=== PATIENT | male | born 1980 | race Two or more races ===

== ENCOUNTER 2023-09-29 14:37 | Inpatient (IN) | payer OTHER ==
[~2023-09-29] VITALS: Ht 175.3 cm; Wt 70.5 kg
[2023-09-29] MEDS ORDERED: METF-1211 PO (15:12)
[2023-09-29] MEDS ORDERED: INSLAN SQ (15:12)
[2023-09-29 15:24] LABS: BASOPHILS % (AUTO) 0.7 % (0.0-2.0); EOSINOPHILS % (AUTO) 1.8 % (1.0-6.0); HEMATOCRIT 37.7 % (41-53); HEMOGLOBIN 13.2 g/dL (13.5-17.5); LYMPHOCYTES # (AUTO) 1.5 K/uL (1.0-4.8); LYMPHOCYTES % (AUTO) 16.7 % (22.0-44.0); MEAN CORPUSCULAR HEMOGLOBIN 29.4 pg (26.0-34.0); MEAN CORPUSCULAR HGB CONC 35.1 G/dL (31.0-37.0); MEAN CORPUSCULAR VOLUME 84 fL (80-100); MONOCYTES # (AUTO) 0.6 K/uL (0.1-1.0); MONOCYTES % (AUTO) 6.5 % (2.0-9.0); NEUTROPHILS # (AUTO) 6.6 K/uL (1.8-7.7); NEUTROPHILS % (AUTO) 74.3 % (40.0-70.0); PLATELET COUNT (AUTO) 245 K/uL (150-450); RED CELL DISTRIBUTION WIDTH 13.9 % (11.5-14.5); WHITE BLOOD COUNT (AUTO) 8.9 K/uL (4.5-11.0)
[2023-09-29 15:59] LABS: ALANINE AMINOTRANSFERASE 15 U/L (12-78); ALBUMIN 3.2 g/dL (3.4-5.0); ALKALINE PHOSPHATASE 114 U/L (46-116); ANION GAP 11 mmol/L (8-16); ASPARTATE AMINOTRANSFERASE 12 U/L (15-37); BILIRUBIN,TOTAL 0.4 mg/dL (0.1-1.0); CALCIUM, TOTAL 9.2 mg/dL (8.8-10.5); CARBON DIOXIDE 27 mmol/L (22-29); CHLORIDE 104 mmol/L (98-107); CREATININE 1.04 mg/dL (0.60-1.30); GLOMERULAR FILTR. RATE CALC > 60 mL/min (>60); POTASSIUM 5.3 mmol/L (3.5-5.1); SODIUM SERUM 141 mmol/L (136-145); TOTAL PROTEIN, SERUM 6.6 g/dL (6.4-8.2); UREA NITROGEN, BLOOD 17 mg/dL (7-18)
[2023-09-29 16:00] LABS: GLUCOSE,RANDOM 433 mg/dL (70-110)
[2023-09-29] MEDS: SODIUM CHLORIDE 0.9% 1,000 ML IV ONE (16:26)
[2023-09-29 16:34] LABS: COVID AG,FIA SOURCE NASAL SWAB
[2023-09-29] MEDS: INSULIN REGULAR, HUMAN 100 UNITS/ML IVP ONE (16:44)
[2023-09-29 16:54] LABS: SARS-COV2 (COVID) ANTIGEN,FIA Negative (Negative)
[2023-09-29 18:12] VITALS: BP 138/75; PULSE 86; RESP 18; TEMP 97.7
[2023-09-29 18:46] LABS: MTB PCR w/Rif. Resistance-SPUT NOT DETECTED (Not Detectd)
[2023-09-29 19:28] VITALS: BP 140/92; PULSE 92; RESP 18; TEMP 98.9
[2023-09-29 21:45] VITALS: BP 150/87; PULSE 81; RESP 16; TEMP 98.7
[2023-09-29] MEDS ORDERED: ONDANSETRON HCL 4 MG/2 ML VIAL IVP PRN (21:45)
[2023-09-29] MEDS ORDERED: 0.9% SODIUM CHLORIDE 10 ML SYRINGE IVP PRN (21:45)
[2023-09-29] MEDS: ACETAMINOPHEN 325 MG TABLET PO PRN (22:39)
[2023-09-30] VITALS (7 sets, daily range): BP systolic 108–150; BP diastolic 78–89; PULSE 83–93; RESP 18; TEMP 97.8–98.6; O2SAT 100
[2023-09-30 01:46] LABS: GLUCOMETER DEV NAME(LOC) 5N.2C; GLUCOSE,POINT OF CARE 346 MG/DL (70-110)
[2023-09-30] MEDS ORDERED: DEXTROSE 50%-WATER 25 GM/50 ML SYRINGE IVP PRN (03:15)
[2023-09-30] MEDS: INSULIN LISPRO 100 UNITS/ML SQ PRN ×2 (06:15→20:43)
[2023-09-30 06:46] LABS: GLUCOMETER DEV NAME(LOC) 5N.2C; GLUCOSE,POINT OF CARE 297 MG/DL (70-110)
[2023-09-30 07:41] LABS: ANION GAP 6 mmol/L (8-16); CALCIUM, TOTAL 8.8 mg/dL (8.8-10.5); CARBON DIOXIDE 29 mmol/L (22-29); CHLORIDE 102 mmol/L (98-107); CREATININE 0.83 mg/dL (0.60-1.30); GLOMERULAR FILTR. RATE CALC > 60 mL/min (>60); GLUCOSE,RANDOM 224 mg/dL (70-110); POTASSIUM 3.7 mmol/L (3.5-5.1); SODIUM SERUM 137 mmol/L (136-145); UREA NITROGEN, BLOOD 18 mg/dL (7-18)
[2023-09-30 08:07] LABS: HIV 1-2 SCREEN 4TH GEN W/RFLX Non Reactive (Non Reactive)
[2023-09-30] MEDS ORDERED: GLUCAGON,HUMAN RECOMBINANT 1 MG VIAL IM PRN (16:45)
[2023-09-30] MEDS ORDERED: IPRATROPIUM BROMIDE 0.5 MG/2.5 ML NEB SOLUTION NEB PRN (16:45)
[2023-09-30] MEDS ORDERED: BISACODYL 10 MG RECTAL RECTAL SUPPOSITORY PR PRN (16:45)
[2023-09-30] MEDS ORDERED: ONDANSETRON HCL 4 MG/2 ML VIAL IVP PRN (16:45)
[2023-09-30] MEDS ORDERED: ALBUTEROL SULFATE 2.5 MG/0.5 ML NEB SOLUTION NEB PRN (16:45)
[2023-09-30] MEDS ORDERED: MAGNESIUM HYDROXIDE SUSPENSION 30 ML UDCUP PO PRN (16:45)
[2023-09-30] MEDS: LISINOPRIL 20 MG TABLET PO ONE (16:57)
[2023-09-30] MEDS: ACETAMINOPHEN 325 MG TABLET PO PRN (17:15)
[2023-09-30 17:38] LABS: MTB PCR w/Rif. Resistance-SPUT NOT DETECTED (Not Detectd)
[2023-09-30] MEDS: INSULIN GLARGINE,HUM.REC.ANLOG 100 UNITS/ML SQ SCH (20:42)
[2023-09-30 21:57] LABS: GLUCOMETER DEV NAME(LOC) 5N.2C; GLUCOSE,POINT OF CARE 247 MG/DL (70-110)
[2023-09-30 21:57] LABS: GLUCOMETER DEV NAME(LOC) 5N.2C; GLUCOSE,POINT OF CARE 250 MG/DL (70-110)
[2023-09-30 21:57] LABS: GLUCOMETER DEV NAME(LOC) 5N.2C; GLUCOSE,POINT OF CARE 255 MG/DL (70-110)
[2023-09-30] MEDS: HEPARIN SODIUM,PORCINE 5,000 UNITS/ML VIAL SQ SCH (23:46)
[2023-10-01 01:46] LABS: GLUCOMETER DEV NAME(LOC) 5N.2C; GLUCOSE,POINT OF CARE 157 MG/DL (70-110)
[2023-10-01 02:05] VITALS: BP 107/72; PULSE 78; RESP 18; TEMP 98
[2023-10-01 06:56] VITALS: BP 110/74; PULSE 78; RESP 18; TEMP 98.5
[2023-10-01 08:26] VITALS: BP 107/71; PULSE 85; RESP 18; TEMP 98.9
[2023-10-01] MEDS: LISINOPRIL 20 MG TABLET PO SCH (09:06)
[2023-10-01] MEDS: PANTOPRAZOLE SODIUM 40 MG DR TABLET PO SCH (09:06)
[2023-10-01 11:11] VITALS: BP 136/71; PULSE 87; RESP 18; TEMP 97.8
[2023-10-01 12:56] LABS: GLUCOMETER DEV NAME(LOC) 5N.2C; GLUCOSE,POINT OF CARE 314 MG/DL (70-110)
[2023-10-01 12:56] LABS: GLUCOMETER DEV NAME(LOC) 5N.2C; GLUCOSE,POINT OF CARE 308 MG/DL (70-110)
[2023-10-01 15:22] VITALS: BP 100/63; PULSE 86; RESP 19; TEMP 98.4
[2023-10-01 19:00] VITALS: BP 139/93; PULSE 83; RESP 20; TEMP 97.8
[2023-10-01 21:31] LABS: GLUCOMETER DEV NAME(LOC) 5S.1B; GLUCOSE,POINT OF CARE 276 MG/DL (70-110)
[2023-10-02 00:42] LABS: GLUCOMETER DEV NAME(LOC) 6N.2B; GLUCOSE,POINT OF CARE 241 MG/DL (70-110)
[2023-10-02 05:45] VITALS: BP 101/57; PULSE 78; RESP 20; TEMP 98.3
[2023-10-02 06:05] VITALS: BP 126/79; PULSE 59; RESP 18; TEMP 97.8
[2023-10-02 06:47] VITALS: O2SAT 98
[2023-10-02 07:41] LABS: GLUCOMETER DEV NAME(LOC) 6S.2; GLUCOSE,POINT OF CARE 233 MG/DL (70-110)
[2023-10-02 08:06] LABS: QUANTIFERON+,Mitogen Value >10.00 IU/mL; QUANTIFERON+,TB1 Antigen Value >10.00 IU/mL; QUANTIFERON+,TB2 Antigen Value >10.00 IU/mL; QUANTIFERON, TB GOLD PLUS Positive (Negative)
[2023-10-02 08:14] VITALS: BP 113/65; PULSE 87; RESP 18; TEMP 98.3
[2023-10-02 13:51] LABS: GLUCOMETER DEV NAME(LOC) 4E.2; GLUCOSE,POINT OF CARE 412 MG/DL (70-110)
[2023-10-02 13:56] LABS: GLUCOMETER DEV NAME(LOC) 6S.2; GLUCOSE,POINT OF CARE 148 MG/DL (70-110)
[2023-10-02 15:58] VITALS: BP 115/72; PULSE 86; RESP 18; TEMP 98.4
[2023-10-02 16:31] LABS: ALANINE AMINOTRANSFERASE 14 U/L (12-78); ALBUMIN 3.1 g/dL (3.4-5.0); ALKALINE PHOSPHATASE 102 U/L (46-116); AMYLASE 69 U/L (25-115); ANION GAP 6 mmol/L (8-16); ASPARTATE AMINOTRANSFERASE 12 U/L (15-37); BILIRUBIN,TOTAL 0.3 mg/dL (0.1-1.0); CALCIUM, TOTAL 9.2 mg/dL (8.8-10.5); CARBON DIOXIDE 29 mmol/L (22-29); CHLORIDE 100 mmol/L (98-107); CREATININE 0.91 mg/dL (0.60-1.30); GLOMERULAR FILTR. RATE CALC > 60 mL/min (>60); GLUCOSE,RANDOM 372 mg/dL (70-110); LIPASE 81 U/L (16-77); POTASSIUM 4.6 mmol/L (3.5-5.1); SODIUM SERUM 135 mmol/L (136-145); TOTAL PROTEIN, SERUM 6.2 g/dL (6.4-8.2); UREA NITROGEN, BLOOD 19 mg/dL (7-18)
[2023-10-02 17:56] LABS: GLUCOMETER DEV NAME(LOC) 6N.2B; GLUCOSE,POINT OF CARE 287 MG/DL (70-110)
[2023-10-02 19:24] VITALS: BP 123/75; PULSE 91; RESP 18; TEMP 97.9
[2023-10-03 01:56] LABS: GLUCOMETER DEV NAME(LOC) 6N.2B; GLUCOSE,POINT OF CARE 303 MG/DL (70-110)
[2023-10-03 04:41] VITALS: BP 111/66; PULSE 73; RESP 19; TEMP 98.1
[2023-10-03 04:51] VITALS: O2SAT 98
[2023-10-03 07:46] LABS: GLUCOMETER DEV NAME(LOC) 6N.2B; GLUCOSE,POINT OF CARE 146 MG/DL (70-110)
[2023-10-03 08:16] VITALS: BP 102/63; PULSE 78; RESP 18; TEMP 98.6
[2023-10-03 13:02] LABS: GLUCOMETER DEV NAME(LOC) 6N.2B; GLUCOSE,POINT OF CARE 290 MG/DL (70-110)
[2023-10-03] MEDS ORDERED: IOHEXOL 300 MG/ML 100 ML VIAL ONE (17:51)
[2023-10-03] MEDS ORDERED: SODIUM CHLORIDE 0.9% 100 ML ONE (17:51)
[2023-10-03 20:10] VITALS: BP 116/68; PULSE 84; RESP 20; TEMP 98.6
[2023-10-03 20:46] LABS: GLUCOMETER DEV NAME(LOC) 6N.2B; GLUCOSE,POINT OF CARE 311 MG/DL (70-110)
[2023-10-03] MEDS: ZOLPIDEM TARTRATE 5 MG TABLET PO PRN (22:17)
[2023-10-04 00:41] LABS: GLUCOMETER DEV NAME(LOC) 6S.2; GLUCOSE,POINT OF CARE 325 MG/DL (70-110)
[2023-10-04 04:21] VITALS: BP 121/65; PULSE 89; RESP 20; TEMP 98.2
[2023-10-04 04:50] VITALS: O2SAT 99
[2023-10-04 07:45] VITALS: BP 116/77; PULSE 95; RESP 20; TEMP 98.1
[2023-10-04 07:51] LABS: GLUCOMETER DEV NAME(LOC) 6N.2B; GLUCOSE,POINT OF CARE 169 MG/DL (70-110)
[2023-10-04 11:51] LABS: GLUCOMETER DEV NAME(LOC) 6S.2; GLUCOSE,POINT OF CARE 242 MG/DL (70-110)
[2023-10-04 12:36] LABS: GLUCOMETER DEV NAME(LOC) 4E.2; GLUCOSE,POINT OF CARE 207 MG/DL (70-110)
[2023-10-04 20:33] VITALS: BP 124/76; PULSE 72; RESP 20; TEMP 98
[2023-10-04] MEDS: INSULIN GLARGINE,HUM.REC.ANLOG 100 UNITS/ML SQ SCH (21:22)
[2023-10-05 02:36] LABS: GLUCOMETER DEV NAME(LOC) 4E.2; GLUCOSE,POINT OF CARE 257 MG/DL (70-110)
[2023-10-05 02:40] LABS: GLUCOMETER DEV NAME(LOC) 6S.2; GLUCOSE,POINT OF CARE 216 MG/DL (70-110)
[2023-10-05 04:40] VITALS: BP 110/66; PULSE 63; RESP 18; TEMP 98
[2023-10-05 08:16] LABS: GLUCOMETER DEV NAME(LOC) 4E.2; GLUCOSE,POINT OF CARE 158 MG/DL (70-110)
[2023-10-05 08:20] VITALS: BP 108/67; PULSE 78; RESP 18; TEMP 98.6
[2023-10-05 18:01] LABS: GLUCOMETER DEV NAME(LOC) 6S.2; GLUCOSE,POINT OF CARE 266 MG/DL (70-110)
[2023-10-05 19:06] LABS: GLUCOMETER DEV NAME(LOC) 4E.2; GLUCOSE,POINT OF CARE 142 MG/DL (70-110)
[2023-10-05 19:52] VITALS: BP 99/58; PULSE 79; RESP 18; TEMP 98.1
[2023-10-05 23:05] LABS: QUANTIFERON+, Nil Value 0.04 IU/mL; QUANTIFERON+,Mitogen Value 4.15 IU/mL; QUANTIFERON+,TB1 Antigen Value >10.00 IU/mL; QUANTIFERON+,TB2 Antigen Value >10.00 IU/mL; QUANTIFERON, TB GOLD PLUS Positive (Negative)
[2023-10-05 23:26] LABS: GLUCOMETER DEV NAME(LOC) 6S.2; GLUCOSE,POINT OF CARE 190 MG/DL (70-110)
[2023-10-06 05:06] VITALS: BP 122/71; PULSE 72; RESP 18; TEMP 97.9
[2023-10-06 07:12] LABS: GLUCOMETER DEV NAME(LOC) 6S.2; GLUCOSE,POINT OF CARE 120 MG/DL (70-110)
[2023-10-06 11:39] VITALS: BP 122/77; PULSE 81; RESP 20; TEMP 97.5
[2023-10-06 11:41] LABS: GLUCOMETER DEV NAME(LOC) 6S.2; GLUCOSE,POINT OF CARE 215 MG/DL (70-110)
[2023-10-06 17:36] LABS: GLUCOMETER DEV NAME(LOC) 6N.2B; GLUCOSE,POINT OF CARE 221 MG/DL (70-110)
[2023-10-06] MEDS: MetFORMIN HCL 500 MG TABLET PO SCH (17:53)
[2023-10-06 20:25] VITALS: BP 131/68; PULSE 61; RESP 18; TEMP 98
[2023-10-06] MEDS: BENZONATATE 100 MG CAPSULE PO PRN (23:50)
[2023-10-07 04:37] VITALS: BP 127/63; PULSE 79; RESP 18; TEMP 98
[2023-10-07 06:11] LABS: GLUCOMETER DEV NAME(LOC) 4E.2; GLUCOSE,POINT OF CARE 202 MG/DL (70-110)
[2023-10-07 06:12] LABS: GLUCOMETER DEV NAME(LOC) 4E.2; GLUCOSE,POINT OF CARE 143 MG/DL (70-110)
[2023-10-07 09:05] VITALS: BP 130/73; PULSE 86; RESP 18; TEMP 99.3
[2023-10-07 09:13] VITALS: O2SAT 100
[2023-10-07 11:52] LABS: BASOPHILS % (AUTO) 0.9 % (0.0-2.0); EOSINOPHILS % (AUTO) 2.5 % (1.0-6.0); HEMATOCRIT 41.5 % (41-53); HEMOGLOBIN 14.2 g/dL (13.5-17.5); LYMPHOCYTES # (AUTO) 1.6 K/uL (1.0-4.8); LYMPHOCYTES % (AUTO) 25.7 % (22.0-44.0); MEAN CORPUSCULAR HEMOGLOBIN 28.5 pg (26.0-34.0); MEAN CORPUSCULAR HGB CONC 34.2 G/dL (31.0-37.0); MEAN CORPUSCULAR VOLUME 83 fL (80-100); MONOCYTES # (AUTO) 0.5 K/uL (0.1-1.0); MONOCYTES % (AUTO) 7.6 % (2.0-9.0); NEUTROPHILS # (AUTO) 3.8 K/uL (1.8-7.7); NEUTROPHILS % (AUTO) 63.3 % (40.0-70.0); PLATELET COUNT (AUTO) 229 K/uL (150-450); RED BLOOD CELL COUNT(AUTO) 4.99 MIL/uL (4.50-5.90); RED CELL DISTRIBUTION WIDTH 13.8 % (11.5-14.5); WHITE BLOOD COUNT (AUTO) 6.1 K/uL (4.5-11.0)
[2023-10-07 12:01] LABS: HEMOGLOBIN A1C 9.6 % (3.8-5.6)
[2023-10-07 12:11] LABS: ALANINE AMINOTRANSFERASE 37 U/L (12-78); ALBUMIN 3.3 g/dL (3.4-5.0); ALKALINE PHOSPHATASE 97 U/L (46-116); ANION GAP 3 mmol/L (8-16); ASPARTATE AMINOTRANSFERASE 31 U/L (15-37); BILIRUBIN,TOTAL 0.4 mg/dL (0.1-1.0); CALCIUM, TOTAL 9.6 mg/dL (8.8-10.5); CARBON DIOXIDE 30 mmol/L (22-29); CHLORIDE 98 mmol/L (98-107); CREATININE 0.93 mg/dL (0.60-1.30); GLOMERULAR FILTR. RATE CALC > 60 mL/min (>60); GLUCOSE,RANDOM 222 mg/dL (70-110); SODIUM SERUM 131 mmol/L (136-145); UREA NITROGEN, BLOOD 17 mg/dL (7-18)
[2023-10-07 13:21] LABS: GLUCOMETER DEV NAME(LOC) 6S.2; GLUCOSE,POINT OF CARE 213 MG/DL (70-110)
[2023-10-07] MEDS: SODIUM POLYSTYRENE SULFONATE 15 GM/60 ML SUSPENSION BOTTLE PO ONE (15:19)
[2023-10-07 15:48] VITALS: BP 104/65; PULSE 81; RESP 18; TEMP 98
[2023-10-07] MEDS: INSULIN REGULAR, HUMAN 100 UNITS/ML SQ ONE (16:23)
[2023-10-07 16:24] LABS: ANION GAP 8 mmol/L (8-16); CALCIUM, TOTAL 9.6 mg/dL (8.8-10.5); CARBON DIOXIDE 28 mmol/L (22-29); CHLORIDE 95 mmol/L (98-107); GLOMERULAR FILTR. RATE CALC > 60 mL/min (>60); GLUCOSE,RANDOM 197 mg/dL (70-110); POTASSIUM 5.1 mmol/L (3.5-5.1); SODIUM SERUM 131 mmol/L (136-145); UREA NITROGEN, BLOOD 18 mg/dL (7-18)
[2023-10-07 20:27] VITALS: BP 117/70; PULSE 72; RESP 18; TEMP 98.4
[2023-10-07 21:11] LABS: GLUCOMETER DEV NAME(LOC) 6N.2B; GLUCOSE,POINT OF CARE 184 MG/DL (70-110)
[2023-10-07 21:38] VITALS: O2SAT 100
[2023-10-08 05:07] VITALS: BP 101/59; PULSE 84; RESP 18; TEMP 98
[2023-10-08 06:02] LABS: GLUCOMETER DEV NAME(LOC) 6S.2; GLUCOSE,POINT OF CARE 181 MG/DL (70-110)
[2023-10-08 06:21] LABS: GLUCOMETER DEV NAME(LOC) 4E.2; GLUCOSE,POINT OF CARE 186 MG/DL (70-110)
[2023-10-08 07:30] LABS: BASOPHILS % (AUTO) 0.9 % (0.0-2.0); EOSINOPHILS % (AUTO) 2.8 % (1.0-6.0); HEMOGLOBIN 13.9 g/dL (13.5-17.5); LYMPHOCYTES # (AUTO) 2.4 K/uL (1.0-4.8); LYMPHOCYTES % (AUTO) 32.3 % (22.0-44.0); MEAN CORPUSCULAR HEMOGLOBIN 28.6 pg (26.0-34.0); MEAN CORPUSCULAR HGB CONC 34.8 G/dL (31.0-37.0); MEAN CORPUSCULAR VOLUME 82 fL (80-100); MONOCYTES # (AUTO) 0.6 K/uL (0.1-1.0); MONOCYTES % (AUTO) 8.3 % (2.0-9.0); NEUTROPHILS # (AUTO) 4.1 K/uL (1.8-7.7); NEUTROPHILS % (AUTO) 55.7 % (40.0-70.0); PLATELET COUNT (AUTO) 225 K/uL (150-450); RED BLOOD CELL COUNT(AUTO) 4.86 MIL/uL (4.50-5.90); RED CELL DISTRIBUTION WIDTH 13.9 % (11.5-14.5); WHITE BLOOD COUNT (AUTO) 7.4 K/uL (4.5-11.0)
[2023-10-08 07:47] LABS: ANION GAP 5 mmol/L (8-16); CALCIUM, TOTAL 9.1 mg/dL (8.8-10.5); CARBON DIOXIDE 30 mmol/L (22-29); CHLORIDE 97 mmol/L (98-107); CREATININE 0.83 mg/dL (0.60-1.30); GLOMERULAR FILTR. RATE CALC > 60 mL/min (>60); GLUCOSE,RANDOM 167 mg/dL (70-110); POTASSIUM 3.8 mmol/L (3.5-5.1); SODIUM SERUM 132 mmol/L (136-145); UREA NITROGEN, BLOOD 14 mg/dL (7-18)
[2023-10-08 07:57] VITALS: BP 120/77; PULSE 97; RESP 18; TEMP 97.6
[2023-10-08 15:52] VITALS: BP 118/78; PULSE 88; RESP 20; TEMP 98.2
[2023-10-08 19:40] VITALS: BP 120/70; PULSE 85; RESP 18; TEMP 98.6
[2023-10-08 22:36] LABS: GLUCOMETER DEV NAME(LOC) 4E.2; GLUCOSE,POINT OF CARE 245 MG/DL (70-110)
[2023-10-08 22:36] LABS: GLUCOMETER DEV NAME(LOC) 4E.2; GLUCOSE,POINT OF CARE 252 MG/DL (70-110)
[2023-10-08 22:36] LABS: GLUCOMETER DEV NAME(LOC) 6S.2; GLUCOSE,POINT OF CARE 166 MG/DL (70-110)
[2023-10-09 04:55] VITALS: BP 121/61; PULSE 82; RESP 18; TEMP 98
[2023-10-09 06:36] LABS: GLUCOMETER DEV NAME(LOC) 6N.2B; GLUCOSE,POINT OF CARE 136 MG/DL (70-110)
[2023-10-09] MEDS: RIFAMPIN 300 MG CAPSULE PO SCH (08:37)
[2023-10-09] MEDS: ISONIAZID 300 MG TABLET PO SCH (08:37)
[2023-10-09] MEDS: ETHAMBUTOL HCL 400 MG TABLET PO SCH (08:37)
[2023-10-09] MEDS: PYRIDOXINE HCL 50 MG TABLET PO SCH (08:37)
[2023-10-09] MEDS: PYRAZINAMIDE 500 MG TABLET PO SCH (08:37)
[2023-10-09 13:20] VITALS: BP 118/68; PULSE 84; RESP 18; TEMP 98.5
[2023-10-09 13:24] VITALS: O2SAT 98
[2023-10-09 13:42] LABS: GLUCOMETER DEV NAME(LOC) 6S.2; GLUCOSE,POINT OF CARE 139 MG/DL (70-110)
[2023-10-09 17:56] VITALS: BP 125/72; PULSE 88; RESP 21; TEMP 97.8
[2023-10-09 18:32] LABS: GLUCOMETER DEV NAME(LOC) 6S.2; GLUCOSE,POINT OF CARE 244 MG/DL (70-110)
[2023-10-09 19:50] VITALS: BP 123/78; PULSE 89; RESP 18; TEMP 98.3
[2023-10-10 04:18] VITALS: BP 108/75; PULSE 92; RESP 18; TEMP 98.2
[2023-10-10 06:51] LABS: GLUCOMETER DEV NAME(LOC) 4E.2; GLUCOSE,POINT OF CARE 141 MG/DL (70-110)
[2023-10-10 09:43] VITALS: BP 126/66; PULSE 81; RESP 20; TEMP 98.2
[2023-10-10 12:06] LABS: GLUCOMETER DEV NAME(LOC) 6S.2; GLUCOSE,POINT OF CARE 183 MG/DL (70-110)
[2023-10-10 18:26] LABS: GLUCOMETER DEV NAME(LOC) 6S.2; GLUCOSE,POINT OF CARE 183 MG/DL (70-110)
[2023-10-10 20:38] VITALS: BP 128/84; PULSE 91; RESP 18; TEMP 98.5
[2023-10-11 02:01] LABS: GLUCOMETER DEV NAME(LOC) 6N.2B; GLUCOSE,POINT OF CARE 212 MG/DL (70-110)
[2023-10-11 05:11] VITALS: BP 126/69; PULSE 86; RESP 20; TEMP 97.9
[2023-10-11 08:16] LABS: GLUCOMETER DEV NAME(LOC) 6S.2; GLUCOSE,POINT OF CARE 195 MG/DL (70-110)
[2023-10-11 09:30] VITALS: BP 122/71; PULSE 86; RESP 20; TEMP 98.3
[2023-10-11 11:49] LABS: BASOPHILS % (AUTO) 1.1 % (0.0-2.0); EOSINOPHILS % (AUTO) 4.5 % (1.0-6.0); HEMATOCRIT 38.7 % (41-53); HEMOGLOBIN 13.3 g/dL (13.5-17.5); LYMPHOCYTES # (AUTO) 1.4 K/uL (1.0-4.8); LYMPHOCYTES % (AUTO) 18.9 % (22.0-44.0); MEAN CORPUSCULAR HEMOGLOBIN 28.5 pg (26.0-34.0); MEAN CORPUSCULAR HGB CONC 34.5 G/dL (31.0-37.0); MEAN CORPUSCULAR VOLUME 83 fL (80-100); MONOCYTES # (AUTO) 0.5 K/uL (0.1-1.0); MONOCYTES % (AUTO) 6.5 % (2.0-9.0); NEUTROPHILS # (AUTO) 5.1 K/uL (1.8-7.7); PLATELET COUNT (AUTO) 226 K/uL (150-450); RED BLOOD CELL COUNT(AUTO) 4.68 MIL/uL (4.50-5.90); RED CELL DISTRIBUTION WIDTH 13.5 % (11.5-14.5); WHITE BLOOD COUNT (AUTO) 7.4 K/uL (4.5-11.0)
[2023-10-11 12:17] LABS: ANION GAP 7 mmol/L (8-16); CARBON DIOXIDE 29 mmol/L (22-29); CHLORIDE 98 mmol/L (98-107); CREATININE 0.88 mg/dL (0.60-1.30); GLOMERULAR FILTR. RATE CALC > 60 mL/min (>60); GLUCOSE,RANDOM 253 mg/dL (70-110); POTASSIUM 4.5 mmol/L (3.5-5.1); SODIUM SERUM 134 mmol/L (136-145); UREA NITROGEN, BLOOD 16 mg/dL (7-18)
[2023-10-11 12:23] LABS: ALANINE AMINOTRANSFERASE 37 U/L (12-78); ALBUMIN 3.2 g/dL (3.4-5.0); ALKALINE PHOSPHATASE 106 U/L (46-116); ASPARTATE AMINOTRANSFERASE 21 U/L (15-37); BILIRUBIN,TOTAL 0.5 mg/dL (0.1-1.0); TOTAL PROTEIN, SERUM 6.4 g/dL (6.4-8.2)
[2023-10-11 12:41] LABS: GLUCOMETER DEV NAME(LOC) 6S.2; GLUCOSE,POINT OF CARE 274 MG/DL (70-110)
[2023-10-11] MEDS: MetFORMIN HCL 850 MG TABLET PO SCH (17:23)
[2023-10-11 20:08] VITALS: BP 143/79; PULSE 79; RESP 20; TEMP 97.7
[2023-10-11 23:16] LABS: GLUCOMETER DEV NAME(LOC) 6S.2; GLUCOSE,POINT OF CARE 209 MG/DL (70-110)
[2023-10-11 23:16] LABS: GLUCOMETER DEV NAME(LOC) 6N.2B; GLUCOSE,POINT OF CARE 290 MG/DL (70-110)
[2023-10-12] MEDS: HEPARIN SODIUM,PORCINE 5,000 UNITS/ML VIAL SQ SCH (00:31)
[2023-10-12 05:08] VITALS: BP 131/71; PULSE 87; RESP 20; TEMP 98.2
[2023-10-12 08:01] LABS: BASOPHILS % (AUTO) 0.7 % (0.0-2.0); EOSINOPHILS % (AUTO) 4.8 % (1.0-6.0); HEMATOCRIT 39.3 % (41-53); LYMPHOCYTES # (AUTO) 1.9 K/uL (1.0-4.8); LYMPHOCYTES % (AUTO) 28.3 % (22.0-44.0); MEAN CORPUSCULAR HEMOGLOBIN 28.9 pg (26.0-34.0); MEAN CORPUSCULAR HGB CONC 35.6 G/dL (31.0-37.0); MEAN CORPUSCULAR VOLUME 81 fL (80-100); MONOCYTES # (AUTO) 0.5 K/uL (0.1-1.0); MONOCYTES % (AUTO) 7.3 % (2.0-9.0); NEUTROPHILS % (AUTO) 58.9 % (40.0-70.0); PLATELET COUNT (AUTO) 247 K/uL (150-450); RED BLOOD CELL COUNT(AUTO) 4.83 MIL/uL (4.50-5.90); RED CELL DISTRIBUTION WIDTH 14.2 % (11.5-14.5); WHITE BLOOD COUNT (AUTO) 6.8 K/uL (4.5-11.0)
[2023-10-12 08:08] LABS: ALANINE AMINOTRANSFERASE 33 U/L (12-78); ALBUMIN 3.3 g/dL (3.4-5.0); ALKALINE PHOSPHATASE 97 U/L (46-116); ANION GAP 7 mmol/L (8-16); ASPARTATE AMINOTRANSFERASE 21 U/L (15-37); BILIRUBIN,TOTAL 0.3 mg/dL (0.1-1.0); CALCIUM, TOTAL 9.3 mg/dL (8.8-10.5); CARBON DIOXIDE 28 mmol/L (22-29); CHLORIDE 98 mmol/L (98-107); CREATININE 0.93 mg/dL (0.60-1.30); GLOMERULAR FILTR. RATE CALC > 60 mL/min (>60); GLUCOSE,RANDOM 150 mg/dL (70-110); POTASSIUM 4.1 mmol/L (3.5-5.1); SODIUM SERUM 133 mmol/L (136-145); TOTAL PROTEIN, SERUM 6.7 g/dL (6.4-8.2); UREA NITROGEN, BLOOD 12 mg/dL (7-18)
[2023-10-12 09:03] VITALS: BP 139/73; PULSE 79; RESP 20; TEMP 97.6
[2023-10-12 12:51] LABS: GLUCOMETER DEV NAME(LOC) 4E.2; GLUCOSE,POINT OF CARE 191 MG/DL (70-110)
[2023-10-12 12:51] LABS: GLUCOMETER DEV NAME(LOC) 6S.2; GLUCOSE,POINT OF CARE 139 MG/DL (70-110)
[2023-10-12 20:00] VITALS: BP 128/68; PULSE 87; RESP 18; TEMP 98
[2023-10-13 04:39] VITALS: BP 133/73; PULSE 81; RESP 18; TEMP 98.2
[2023-10-13 06:59] LABS: BASOPHILS % (AUTO) 0.8 % (0.0-2.0); EOSINOPHILS % (AUTO) 3.5 % (1.0-6.0); HEMATOCRIT 37.4 % (41-53); HEMOGLOBIN 13.3 g/dL (13.5-17.5); LYMPHOCYTES # (AUTO) 2.1 K/uL (1.0-4.8); LYMPHOCYTES % (AUTO) 30.4 % (22.0-44.0); MEAN CORPUSCULAR HEMOGLOBIN 28.7 pg (26.0-34.0); MEAN CORPUSCULAR HGB CONC 35.5 G/dL (31.0-37.0); MEAN CORPUSCULAR VOLUME 81 fL (80-100); MONOCYTES # (AUTO) 0.6 K/uL (0.1-1.0); MONOCYTES % (AUTO) 8.1 % (2.0-9.0); NEUTROPHILS % (AUTO) 57.2 % (40.0-70.0); PLATELET COUNT (AUTO) 239 K/uL (150-450); RED BLOOD CELL COUNT(AUTO) 4.64 MIL/uL (4.50-5.90); RED CELL DISTRIBUTION WIDTH 13.7 % (11.5-14.5); WHITE BLOOD COUNT (AUTO) 6.9 K/uL (4.5-11.0)
[2023-10-13 07:21] LABS: ALANINE AMINOTRANSFERASE 25 U/L (12-78); ALBUMIN 3.2 g/dL (3.4-5.0); ALKALINE PHOSPHATASE 86 U/L (46-116); ANION GAP 9 mmol/L (8-16); ASPARTATE AMINOTRANSFERASE 18 U/L (15-37); BILIRUBIN,TOTAL 0.3 mg/dL (0.1-1.0); CALCIUM, TOTAL 9.1 mg/dL (8.8-10.5); CARBON DIOXIDE 27 mmol/L (22-29); CHLORIDE 99 mmol/L (98-107); CREATININE 0.78 mg/dL (0.60-1.30); GLOMERULAR FILTR. RATE CALC > 60 mL/min (>60); GLUCOSE,RANDOM 147 mg/dL (70-110); SODIUM SERUM 135 mmol/L (136-145); TOTAL PROTEIN, SERUM 6.4 g/dL (6.4-8.2); UREA NITROGEN, BLOOD 13 mg/dL (7-18)
[2023-10-13 07:36] LABS: GLUCOMETER DEV NAME(LOC) 6N.2B; GLUCOSE,POINT OF CARE 123 MG/DL (70-110)
[2023-10-13 07:37] LABS: GLUCOMETER DEV NAME(LOC) 4E.2; GLUCOSE,POINT OF CARE 142 MG/DL (70-110)
[2023-10-13 07:37] LABS: GLUCOMETER DEV NAME(LOC) 6S.2; GLUCOSE,POINT OF CARE 178 MG/DL (70-110)
[2023-10-13 08:29] VITALS: BP 130/71; PULSE 98; RESP 19; TEMP 98
[2023-10-13 11:41] LABS: GLUCOMETER DEV NAME(LOC) 6S.2; GLUCOSE,POINT OF CARE 188 MG/DL (70-110)
[2023-10-13 17:32] LABS: GLUCOMETER DEV NAME(LOC) 6N.2B; GLUCOSE,POINT OF CARE 118 MG/DL (70-110)
[2023-10-13 21:22] VITALS: BP 146/60; PULSE 84; RESP 18; TEMP 98.7
[2023-10-14 05:20] VITALS: BP 138/80; PULSE 92; RESP 18; TEMP 98.4
[2023-10-14 05:56] LABS: GLUCOMETER DEV NAME(LOC) 6N.2B; GLUCOSE,POINT OF CARE 217 MG/DL (70-110)
[2023-10-14 06:41] LABS: GLUCOMETER DEV NAME(LOC) 6S.2; GLUCOSE,POINT OF CARE 144 MG/DL (70-110)
[2023-10-14 07:31] LABS: ALANINE AMINOTRANSFERASE 30 U/L (12-78); ALBUMIN 3.2 g/dL (3.4-5.0); ALKALINE PHOSPHATASE 84 U/L (46-116); ANION GAP 10 mmol/L (8-16); ASPARTATE AMINOTRANSFERASE 25 U/L (15-37); BILIRUBIN,TOTAL 0.3 mg/dL (0.1-1.0); CARBON DIOXIDE 26 mmol/L (22-29); CHLORIDE 97 mmol/L (98-107); CREATININE 0.76 mg/dL (0.60-1.30); GLOMERULAR FILTR. RATE CALC > 60 mL/min (>60); GLUCOSE,RANDOM 139 mg/dL (70-110); POTASSIUM 4.3 mmol/L (3.5-5.1); SODIUM SERUM 133 mmol/L (136-145); TOTAL PROTEIN, SERUM 6.2 g/dL (6.4-8.2); UREA NITROGEN, BLOOD 13 mg/dL (7-18)
[2023-10-14 07:34] LABS: BASOPHILS % (AUTO) 0.7 % (0.0-2.0); EOSINOPHILS % (AUTO) 3.6 % (1.0-6.0); HEMATOCRIT 37.7 % (41-53); HEMOGLOBIN 13.4 g/dL (13.5-17.5); LYMPHOCYTES # (AUTO) 2.2 K/uL (1.0-4.8); LYMPHOCYTES % (AUTO) 32.9 % (22.0-44.0); MEAN CORPUSCULAR HEMOGLOBIN 28.8 pg (26.0-34.0); MEAN CORPUSCULAR HGB CONC 35.6 G/dL (31.0-37.0); MEAN CORPUSCULAR VOLUME 81 fL (80-100); MONOCYTES # (AUTO) 0.5 K/uL (0.1-1.0); NEUTROPHILS # (AUTO) 3.7 K/uL (1.8-7.7); NEUTROPHILS % (AUTO) 54.8 % (40.0-70.0); PLATELET COUNT (AUTO) 242 K/uL (150-450); RED BLOOD CELL COUNT(AUTO) 4.66 MIL/uL (4.50-5.90); RED CELL DISTRIBUTION WIDTH 14.1 % (11.5-14.5); WHITE BLOOD COUNT (AUTO) 6.7 K/uL (4.5-11.0)
[2023-10-14 09:11] VITALS: BP 130/78; PULSE 86; RESP 20; TEMP 97.8
[2023-10-14] MEDS ORDERED: INSLAN SQ (12:02)
[2023-10-14 12:06] LABS: GLUCOMETER DEV NAME(LOC) 4E.2; GLUCOSE,POINT OF CARE 197 MG/DL (70-110)
== END 2023-10-14 17:21 | DRG 639 ==
LOC: EMS 14:37 → 6N 16:47 → 5N 22:23 → 6S 10-01 18:15
PROVIDERS: ADMIT Hospitalist; ATTEND Hospitalist
DX: E11.65 Type 2 diabetes mellitus with hyperglycemia (principal); K59.00 Constipation, unspecified; J47.9 Bronchiectasis, uncomplicated; E87.5 Hyperkalemia; Z20.822 Contact with and (suspected) exposure to COVID-19; K76.0 Fatty (change of) liver, not elsewhere classified; Z78.9 Other specified health status; Z87.891 Personal history of nicotine dependence; Z72.89 Other problems related to lifestyle
CPT/HCPCS: 71046; 71260; 80048; 80053; 82150; 82962; 83036; 83690; 85025; 86480; 87015; 87206; 87389; 87556; 94640; 99285; J1644; J1815; J7050; Q9967; 36415-L1; 36415-TC